=== PATIENT | female | born 1990 | race Caucasian/White ===

== ENCOUNTER 2022-05-06 16:44 | Inpatient (IN) ==
[2022-05-07 00:52] LABS: Basophils % 0.2 % (0.0-0.8); Eosinophils # 0.1 10*3/uL (0.0-0.87); Eosinophils % 0.7 % (0.00-10.9); Hematocrit 31.7 VOL% (35.7-47.0); Hemoglobin 10.7 GM/DL (12.0-16.0); Immature Granulocytes % 0.7 %; Immature Granulocytes Absolute 0.06 #; Lymphocytes # 2.4 10*3/uL (1.4-4.0); Lymphocytes % 27.5 % (21.3-54.2); Mean Corpuscular HGB Conc 33.8 GM/DL (32-36); Mean Corpuscular Volume 86.4 FL (87-102); Mean Platelet Volume 11.2 FL (9.6-12.0); Monocytes # 0.8 10*3/uL (0.11-0.8); Monocytes % 9.2 % (1.7-12.7); Neutrophils % 61.7 % (38.7-73.9); Platelet Count 166 T/CUMM (130-400); Red Blood Count 3.67 MC/CUMM (3.8-5.5); Red Cell Distribution Width 12.4 % (9.3-17.3); White Blood Count 8.8 T/CUMM (4-12)
[2022-05-07] MEDS: LACTATED RINGERS 1,000 ML IV SCH ×2 (04:34→06:46)
[2022-05-07] MEDS ORDERED: ceFAZolin 2,000 MG/50 ML DUPLEX IV ONE (05:30)
[2022-05-07] MEDS ORDERED: METHYLERGONOVINE 0.2 MG/1 ML AMP IM PRN (05:30)
[2022-05-07] MEDS ORDERED: OXYTOCIN/LR 20 UNIT/1,000 ML BAG IV ONE ×3 (05:30→09:15)
[2022-05-07] MEDS ORDERED: TRANEXAMIC ACID 1,000 MG in SODIUM CHLORIDE 0.9% 100 ML IV PRN (05:30)
[2022-05-07] MEDS ORDERED: FAMOTIDINE 20 MG/2 ML VIAL IV ONE (05:30)
[2022-05-07] MEDS ORDERED: CARBOPROST TROMETHAMINE 250 MCG/ML AMP IM PRN (05:30)
[2022-05-07] MEDS ORDERED: CITRIC ACID/SODIUM CITRATE 30 ML UDCUP PO ONE (05:30)
[2022-05-07] MEDS ORDERED: miSOPROStoL 200 MCG TABLET RECTAL PRN (05:30)
[2022-05-07] MEDS ORDERED: ONDANSETRON 4 MG/2 ML VIAL ONE (07:26)
[2022-05-07] MEDS ORDERED: BUPIVACAINE SPINAL 0.75% 2 ML AMP SPINAL ONE (07:26)
[2022-05-07] MEDS ORDERED: buprenorphine HCL 0.3 MG/ML VIAL ONE (07:27)
[2022-05-07] MEDS ORDERED: SODIUM CHLORIDE 0.9% 0 ML IV ONE (08:06)
[2022-05-07] MEDS ORDERED: TRANEXAMIC ACID 1,000 MG/10 ML VIAL ONE (08:06)
[2022-05-07] MEDS ORDERED: miSOPROStoL 200 MCG TABLET ONE (08:06)
[2022-05-07] MEDS ORDERED: CARBOPROST TROMETHAMINE 250 MCG/ML AMP IM ONE (08:07)
[2022-05-07] MEDS ORDERED: PHENYLEPHRINE 1 MG/10 ML SYRINGE IV ONE ×2 (08:07→08:45)
[2022-05-07] MEDS ORDERED: METHYLERGONOVINE 0.2 MG/1 ML AMP ONE (08:07)
[2022-05-07] MEDS ORDERED: TRIAMCINOLONE ACETONIDE 40 MG/1 ML VIAL ONE (08:39)
[2022-05-07 08:41] LABS: Cord Arterial Blood HCO3 19.7 MMOL/L
[2022-05-07 08:45] LABS: Cord Venous Blood HCO3 20.5 MMOL/L; Cord Venous Blood PCO2 44.2 MMHG; Cord Venous Blood PO2 25.5
[2022-05-07] MEDS ORDERED: KETOROLAC 30 MG/1 ML VIAL ONE (08:51)
[2022-05-07] MEDS ORDERED: ACETAMINOPHEN INJ 1,000 MG/100 ML VIAL IV ONE (08:51)
[2022-05-07 08:53] LABS: Glucose,Urine (UA) Negative (Negative); Ketones,Urine Negative (Negative); Mucus,Urine Occasional /LPF (Occasional); Nitrite,Urine Negative (Negative); Protein,Urine Negative (Negative); RBC,Urine 1 /HPF (0-4); Squamous Epithelial Cell,Urine Occasional /HPF (0-10); Urine Appearance Clear (Clear); Urine Color Yellow (Yellow)
[2022-05-07 08:54] LABS: Bilirubin,Urine Negative (Negative); Blood, Urine Negative (Negative); Urine Urobilinogen 0.2 eU/dL (<2.0)
[2022-05-07] MEDS ORDERED: TRIAMCINOLONE ACETONIDE 40 MG/1 ML VIAL IM ONE (09:06)
[2022-05-07] MEDS ORDERED: SIMETHICONE CHEW 80 MG TABLET PO PRN (09:15)
[2022-05-07] MEDS ORDERED: ONDANSETRON 4 MG/2 ML VIAL IV PRN (09:15)
[2022-05-07] MEDS ORDERED: MAGNESIUM HYDROXIDE SUSP 30 ML UDCUP PO PRN (09:15)
[2022-05-07] MEDS ORDERED: ACETAMINOPHEN 325 MG TABLET PO PRN (09:15)
[2022-05-07] MEDS ORDERED: RHO(D) IMMUNE GLOBULIN 300 MCG SYRINGE IM ONE (09:15)
[2022-05-07] MEDS ORDERED: LACTATED RINGERS 1,000 ML IV SCH (09:30)
[2022-05-07] MEDS: oxyCODONE/ACETAMINOPHEN 5-325 MG TABLET PO PRN (12:45)
[2022-05-07] MEDS: KETOROLAC 30 MG/1 ML VIAL IV SCH ×2 (16:40→22:02)
[2022-05-07] MEDS: ACETAMINOPHEN 500 MG TABLET PO SCH ×2 (16:40→22:11)
[2022-05-07] MEDS: DOCUSATE SODIUM 100 MG CAPSULE PO SCH (21:03)
[2022-05-08] MEDS: oxyCODONE/ACETAMINOPHEN 5-325 MG TABLET PO PRN ×5 (02:12→22:50)
[2022-05-08] MEDS: IBUPROFEN 800 MG TABLET PO PRN ×3 (06:04→21:04)
[2022-05-08 06:05] LABS: Basophils % 0.2 % (0.0-0.8); Eosinophils # 0.1 10*3/uL (0.0-0.87); Eosinophils % 0.8 % (0.00-10.9); Hematocrit 30.8 VOL% (35.7-47.0); Hemoglobin 10.1 GM/DL (12.0-16.0); Immature Granulocytes % 0.6 %; Immature Granulocytes Absolute 0.06 #; Lymphocytes % 21.1 % (21.3-54.2); Mean Corpuscular HGB Conc 32.8 GM/DL (32-36); Mean Corpuscular Volume 88.8 FL (87-102); Mean Platelet Volume 10.9 FL (9.6-12.0); Monocytes # 0.7 10*3/uL (0.11-0.8); Monocytes % 7.5 % (1.7-12.7); Neutrophils % 69.8 % (38.7-73.9); Platelet Count 142 T/CUMM (130-400); Red Blood Count 3.47 MC/CUMM (3.8-5.5); Red Cell Distribution Width 12.7 % (9.3-17.3); White Blood Count 9.4 T/CUMM (4-12)
[2022-05-08] MEDS: DOCUSATE SODIUM 100 MG CAPSULE PO SCH ×2 (08:41→21:03)
[2022-05-08] MEDS: MULTIVITAMIN (PRENATAL) TABLET PO SCH (08:41)
[2022-05-09] MEDS: oxyCODONE/ACETAMINOPHEN 5-325 MG TABLET PO PRN ×3 (02:05→14:18)
[2022-05-09] MEDS: IBUPROFEN 800 MG TABLET PO PRN (04:20)
[2022-05-09] MEDS: DOCUSATE SODIUM 100 MG CAPSULE PO SCH (08:36)
[2022-05-09] MEDS: MULTIVITAMIN (PRENATAL) TABLET PO SCH (08:36)
[2022-05-09 11:40] VITALS: BP 131/73
== END 2022-05-09 15:30 | disposition home or self-care (01) | DRG 788 ==
LOC: N.LDOUT 16:44 → N.LD 16:46 → N.OB 05-07 12:16
PROVIDERS: ADMIT Obstetrics & Gynecology; ATTEND Obstetrics & Gynecology
PROC: LDCSECT (ICD-10-PCS; 2022-05-07 08:00)